=== PATIENT | female | born 1940 | race Caucasian/White ===

== ENCOUNTER 2016-07-15 05:49 | Day surgery (SDC) | payer OTHER ==
[~2016-07-15] VITALS: Ht 157.5 cm; Wt 100.7 kg
[~2016-07-15 05:49] MED LIST: ADVIL,NUPRIN,M200 MG PO; CALCIUM 600 +1 EAC3 PO; CELEXA20 MG PO; DAILY VITE1 EAC1 PO; DIOVAN160 MG PO; IRON325 M1 PO; LITE COAT ASPI325 M1 PO; LOPID600 MG PO; LYRICA50 MG PO; METFORMIN HCL1000 MG PO; MICARDIS80 MG PO; NEURONTIN100 MG PO; NEXIUM40 MG PO; OXYCODONE HCL5 MG PO; PROTONIX40 MG PO; TIMOPTIC-0100 DROP/5 LEFT EYE; TRAMADOL HCL50 MG PO; WELCHOL625 MG PO; XANAX0.5 MG PO
[2016-07-15 06:29] VITALS: BP 185/79
[2016-07-15 11:29] VITALS: BP 153/67
[2016-07-15 12:49] VITALS: BP 148/55
[2016-07-15 13:50] VITALS: BP 148/55
== END 2016-07-15 13:55 | disposition home or self-care (01) ==
LOC: SDC 05:49 → 2SOUTH 09:06 → SDC 11:44 → EDSTATUS 15:12 → SDC 15:13
DX: M47.22 Other spondylosis with radiculopathy, cervical region (principal); M79.601 Pain in right arm; F41.9 Anxiety disorder, unspecified; I10 Essential (primary) hypertension; E11.9 Type 2 diabetes mellitus without complications; M19.90 Unspecified osteoarthritis, unspecified site; E66.9 Obesity, unspecified; Z68.41 Body mass index [BMI] 40.0-44.9, adult; M75.92 Shoulder lesion, unspecified, left shoulder; M75.91 Shoulder lesion, unspecified, right shoulder
CPT/HCPCS: 72020; 76000; C1713; J0330; J0360; J0690; J1100; J1170; J2405; J2710; J3010